=== PATIENT | female | born 1995 | race Caucasian/White ===

== ENCOUNTER 2024-10-01 19:45 | Emergency (ER) | payer MEDICAID ==
[~2024-10-01] VITALS: Ht 160 cm; Wt 88.0 kg
[2024-10-01 20:08] VITALS: TEMP 36.8; O2SAT 99
[2024-10-01] MEDS: ACETAMINOPHEN 325MG TABLET PO ONE (22:59)
[2024-10-01 23:22] VITALS: BP 123/74; PULSE 62; RESP 16; O2SAT 100
== END 2024-10-01 23:24 | disposition home or self-care (01) ==
LOC: ER 19:45
DX: R07.89 Other chest pain (principal); Z98.890 Other specified postprocedural states
CPT/HCPCS: 71045; 93005; 99283